=== PATIENT | female | born 1950 | race American Indian/Alaskan Native ===

== ENCOUNTER 2018-12-08 12:34 | Emergency (ER) | payer SELFPAY ==
[2018-12-08 12:45] VITALS: BP 148/82
--- NOTE | 2018-12-08 12:46 | Event Note ---
ED Screening Note Date of service: 12/08/18 Time: 12:43 ED Screening Note: 68 y o presents to ED cc tigling pain to her left hand and arm from something that bit her 2 days ago no visual f what bit her This initial assessment/diagnostic orders/clinical plan/treatment(s) is/are subject to change based on patients health status, clinical progression and re- assessment by fellow clinical providers in the ED. Further treatment and workup at subsequent clinical providers discretion. Patient/guardian urged not to elope from the ED as their condition may be serious if not clinically assessed and managed. Initial orders include:
== END 2018-12-08 17:50 | disposition left against medical advice (07) ==
LOC: ED 12:34
DX: L29.9 Pruritus, unspecified (principal); Z53.21 Procedure and treatment not carried out due to patient leaving prior to being seen by health care provider

== ENCOUNTER 2020-08-05 17:33 | Emergency (ER) | payer MEDICARE ==
[2020-08-05] MEDS ORDERED: SODIUM CHLORIDE 0.9% 1000 ML 1,000 ML IV ONE (19:45)
--- NOTE | 2020-08-05 20:37 | XRay Report ---
ACUTE ABDOMEN SERIES 3 VIEWS 1950 INDICATION: near syncope, constipation COMPARISON: None available. FINDINGS: Lung godinez appear clear. No pneumoperitoneum is seen. I do not see evidence of bowel obstr uction. Moderate stool in the rectum might indicate mild impaction. Calcifications of the pelvis prob ably are vascular though some are indeterminate. Signer Name: Tadeo Bradshaw MD Signed: 08/05/2020 8:33 PM Workstation Name: [id number]
[2020-08-05 20:46] LABS: Basophils # (Auto) 0.1 K/mm3 (0.0-0.1); Basophils % (Auto) 0.7 % (0.0-1.8); Eosinophils % (Auto) 0.4 % (0.0-4.3); Hematocrit 41.1 % (30.3-42.9); Hemoglobin 13.3 gm/dl (10.1-14.3); Lymphocytes # (Auto) 1.1 K/mm3 (1.2-5.4); Lymphocytes % (Auto) 14.9 % (13.4-35.0); Mean Corpuscular HGB Conc 32 % (30-34); Mean Corpuscular Volume 92 fl (79-97); Monocytes # (Auto) 0.2 K/mm3 (0.0-0.8); Monocytes % (Auto) 3.2 % (0.0-7.3); Platelet Count 211 K/mm3 (140-440); Red Blood Count 4.48 M/mm3 (3.65-5.03); Red Cell Distribution Width 14.8 % (13.2-15.2)
[2020-08-05 20:51] LABS: Bilirubin,Urine NEG (Negative); Blood,Urine NEG (Negative); Color,Urine Straw (Yellow); Mucus,Urine 1+ /HPF; Protein,Urine <15 mg/dL mg/dL (Negative); Urobilinogen,Urine < 2.0 mg/dL (<2.0)
[2020-08-05 20:59] LABS: Blood Urea Nitrogen 11 mg/dL (7-17); Calcium 9.3 mg/dL (8.4-10.2); Hemolysis Index 0
[2020-08-05 21:05] LABS: BUN/Creatinine Ratio 22
--- NOTE | 2020-08-05 21:35 | Emergency Department Report ---
ED Syncope HPI - General Chief Complaint: Dizziness Stated Complaint: NAUSEA/VOMITING Time Seen by Provider: 08/05/20 19:40 - History of Present Illness Initial Comments: Patient is a 70-year-old F [place] female with past medical history of hypertension who states she had a near syncopal episode today. States she has been has some abdominal discomfort and cramps secondary to constipation. Patient not had a bowel movement in over a week. She states after taking her medications of which 2 were new which were Crestor and Protonix she states she had some fullness in the abdomen and felt very hot. She denies chest pain sh ortness of breath fevers chills nausea vomiting. Patient is after receiving some IV fluids from apprentice plant attendant states she is feeling better. Paramedics arrived they stated that she was alert and oriented but looked very sleepy with possible pinpoint pupils. She was given Narcan. Patient has no history of narcotic use to our knowledge. - Related Data Allergies/Adverse Reactions: Allergies No Known Allergies Allergy (Unverified 12/08/18 12:39) Home Medications: Ambulatory Orders Nitrofurantoin Phelps/M-Cryst [Macrobid CAP] 100 mg PO Q12HR #10 capsule 01/02/19 Docusate Sodium [Colace] 100 mg PO BID #30 capsule 08/05/20 ED Review of Systems ROS: Stated complaint: NAUSEA/VOMITING Other details as noted in HPI Comment: All other systems reviewed and negative ED Past Medical Hx - Past Medical History Hx Hypertension: Yes Hx Arthritis: Yes Hx Psychiatric Treatment: Yes (ANXIETY,DEPRESSION) Additional medical history: ELEVATED CHOLESTEROL, - Social History Smoking Status: Current Every Day Smoker Substance Use Type: Marijuana - Medications Home Medications: Home Medications Medication Instructions Recorded Confirmed Last Taken Type Nitrofurantoin Phelps/M-Cryst 100 mg PO Q12HR #10 capsule 01/02/19 Unknown Rx [Macrobid CAP] Docusate Sodium [Colace] 100 mg PO BID #30 capsule 08/05/20 Unknown Rx ED Physical Exam - General Limitations: No Limitations General appearance: alert, in no apparent distress - Head Head exam: Present: atraumatic, normocephalic - Eye Eye exam: Present: normal appearance - ENT ENT exam: Present: mucous membranes moist - Neck Neck exam: Present: normal inspection - Respiratory Respiratory exam: Present: normal lung sounds bilaterally. Absent: respiratory distress, wheezes, rales, rhonchi - Cardiovascular Cardiovascular Exam: Present: regular rate, normal rhythm, normal heart sounds. Absent: systolic murmur, diastolic murmur, rubs, gallop - GI/Abdominal GI/Abdominal exam: Present: soft, normal bowel sounds. Absent: distended, tenderness, guarding, rebound - Extremities Exam Extremities exam: Present: normal inspection - Back Exam Back exam: Present: normal inspection - Neurological Exam Neurological exam: Present: alert, oriented X3 - Psychiatric Psychiatric exam: Present: normal affect, normal mood - Skin Skin exam: Present: warm, dry, intact, normal color. Absent: rash ED Course Vital Signs 08/05/20 19:05 Temperature 96.1 F L Pulse Rate 58 L Respiratory 18 Rate Blood Pressure 141/90 O2 Sat by Pulse 97 Oximetry ED Medical Decision Making - Lab Data Result diagrams: 08/05/20 20:20 08/05/20 20:20 Lab Results 08/05/20 08/05/20 08/05/20 Range/Units 20:02 20:20 20:20 WBC 7.2 (4.5-11.0) K/mm3 RBC 4.48 (3.65-5.03) M/mm3 Hgb 13.3 (10.1-14.3) gm/dl Hct 41.1 (30.3-42.9) % MCV 92 (79-97) fl MCH 30 (28-32) pg MCHC 32 (30-34) % RDW 14.8 (13.2-15.2) % Plt Count 211 (140-440) K/mm3 Lymph % (Auto) 14.9 (13.4-35.0) % Phelps % (Auto) 3.2 (0.0-7.3) % Eos % (Auto) 0.4 (0.0-4.3) % Baso % (Auto) 0.7 (0.0-1.8) % Lymph # (Auto) 1.1 L (1.2-5.4) K/mm3 Phelps # (Auto) 0.2 (0.0-0.8) K/mm3 Eos # (Auto) 0.0 (0.0-0.4) K/mm3 Baso # (Auto) 0.1 (0.0-0.1) K/mm3 Seg Neutrophils % 80.8 H (40.0-70.0) % Seg Neutrophils # 5.8 (1.8-7.7) K/mm3 Sodium 144 (137-145) mmol/L Potassium 3.3 L (3.6-5.0) mmol/L Chloride 104.9 (98-107) mmol/L Carbon Dioxide 28 (22-30) mmol/L Anion Gap 14 mmol/L BUN 11 (7-17) mg/dL Creatinine 0.5 L (0.6-1.2) mg/dL Estimated GFR > 60 ml/min BUN/Creatinine Ratio 22 % Glucose 98 (65-100) mg/dL Calcium 9.3 (8.4-10.2) mg/dL Urine Color Straw (Yellow) Urine Turbidity Clear (Clear) Urine pH 7.0 (5.0-7.0) Ur Specific [place] 1.012 (1.003-1.030) Urine Protein <15 mg/dl (Negative) mg/dL Urine Glucose (UA) Neg (Negative) mg/dL Urine Ketones Tr (Negative) mg/dL Urine Blood Neg (Negative) Urine Nitrite Neg (Negative) Urine Bilirubin Neg (Negative) Urine Urobilinogen < 2.0 (<2.0) mg/dL Ur Leukocyte Esterase Neg (Negative) Urine WBC (Auto) 1.0 (0.0-6.0) /HPF Urine RBC (Auto) 5.0 (0.0-6.0) /HPF U Epithel Cells (Auto) 5.0 (0-13.0) /HPF Urine Mucus 1+ /HPF - EKG Data -: EKG Interpreted by Ny EKG shows normal: sinus rhythm (rate 60), axis, intervals, QRS complexes, ST-T waves Rate: normal - EKG Data Interpretation: normal EKG - Radiology Data [facility] [address] [place] [address] XRay Report Signed Patient: KARIME BROWER MR#: [id number] : 1950 Acct:[id number] Age/Sex: 70 / F ADM Date: 08/05/20 Loc: ED Attending Dr: Ordering Physician: LENCHO KNOTT MD Date of Service: 08/05/20 Procedure(s): XR abd series w cxr 1V Accession Number(s): [id number] cc: LENCHO KNOTT MD Fluoro Time In Minutes: ACUTE ABDOMEN SERIES 3 VIEWS 1950 INDICATION: near syncope, constipation COMPARISON: None available. FINDINGS: Lung godinez appear clear. No pneumoperitoneum is seen. I do not see evidence of bowel obstruction. Moderate stool in the rectum might indicate mild impaction. Calcifications of the pelvis probably are vascular though some are indeterminate. Signer Name: Tadeo Bradshaw MD Signed: 08/05/2020 8:33 PM Workstation Name: [id number] Transcribed By: Dictated By: Tadeo Bradshaw MD Electronically Authenticated By: Tadeo Bradshaw MD Signed Date/Time: 08/05/202032 - Medical Decision Making Paramedics on their arrival before patient was able to be put in the bed stated that the patient was bradycardic down into the 40s. Patient was a symptomatic. States she is feeling much improved. Prior monitor the patient has been approximately 64 heart rate the entire time she has been here. Patient is on atenolol and I would expect a lower heart rate at her baseline. Regarding the patient's possible near syncopal episode patient appears well currently. Laboratory studies unremarkable. She received some fluids and states she is feels much better. Believe the patient stable for discharge. Patient does show evidence of some constipation will be started on Colace. Critical care attestation.: If time is entered above; I have spent that time in minutes in the direct care of this critically ill patient, excluding procedure time. ED Disposition Clinical Impression: Syncope, near, Constipation Disposition: DC-01 TO HOME OR SELFCARE Is pt being admited?: No Does the pt Need Aspirin: No Condition: Stable Instructions: Constipation, Adult, Near-Syncope, [id number] Prescriptions: Docusate Sodium [Colace] 100 mg PO BID #30 capsule Referrals: PRIMARY CARE, [Primary Care Provider] - 3-5 Days Time of Disposition: 21:37
[2020-08-05] MEDS ORDERED: KETOROLAC 30 MG/1 ML INJ IV ONE (21:58)
[2020-08-05] MEDS ORDERED: ONDANSETRON 4 MG/2 ML INJ IV ONE (21:58)
[2020-08-06 00:13] VITALS: BP 158/97
== END 2020-08-05 21:50 | disposition home or self-care (01) ==
LOC: ED 17:33
DX: R55 Syncope and collapse (principal); K59.00 Constipation, unspecified; I10 Essential (primary) hypertension; M19.91 Primary osteoarthritis, unspecified site; F41.9 Anxiety disorder, unspecified; F32.9 Major depressive disorder, single episode, unspecified; F17.200 Nicotine dependence, unspecified, uncomplicated; F12.10 Cannabis abuse, uncomplicated; Z79.899 Other long term (current) drug therapy
CPT/HCPCS: 36415; 74022; 80048; 81001; 85025; 96361; 96374; 96375; 99284; J1885; J2405; J7030

== ENCOUNTER 2021-04-30 11:36 | Emergency (ER) | payer MEDICARE ==
[2021-04-30 12:17] VITALS: BP 165/96
--- NOTE | 2021-04-30 12:49 | Emergency Department Report ---
ED Back Pain/Injury HPI - General Chief Complaint: Back Pain/Injury Stated Complaint: BACK/NECK PAIN Time Seen by Provider: 04/30/21 12:28 Source: patient Limitations: No Limitations - History of Present Illness Initial Comments: Chief complaint: "My neck and back is killing me." HPI: This is a 70-year-old female with history of Anxiety, depression, hyperlipidemia, diabetes, hypertension who presents with neck and back pain for several weeks. She has had arthritis in her back and neck for 10+ years. She is waiting for referral to pain physician by primary care doctor. She has used Tylenol at home without relief. She has lower neck pain and lower back pain. Pain is worse with cold weather. She denies weakness in the extremities. No bowel or bladder incontinence. In the past she has taken Vicodin and Tylenol 3. MD Complaint: back pain -: Gradual, year(s) (10 years) Similar Symptoms Previously: Yes Severity: severe Severity scale (0 -10): 10 Quality: dull, aching Consistency: constant Improves With: none Worsens With: none Context: other (History of arthritis) Associated Symptoms: denies other symptoms - Related Data Previous Rx's Medication Instructions Recorded Last Taken Type Nitrofurantoin Luce/M-Cryst 100 mg PO Q12HR #10 capsule 01/02/19 Unknown Rx [Macrobid CAP] Docusate Sodium [Colace] 100 mg PO BID #30 capsule 08/05/20 Unknown Rx HYDROcodone/APAP 5-325 [[place] 1 each PO Q6HR PRN #15 tablet 04/30/21 Unknown Rx 5/325] Allergies Allergy/AdvReac Type Severity Reaction Status Date / Time No Known Allergies Allergy Verified 04/30/21 12:17 ED Review of Systems ROS: Stated complaint: BACK/NECK PAIN Other details as noted in HPI Comment: All other systems reviewed and negative Constitutional: denies: chills, fever, malaise Respiratory: denies: cough, shortness of breath Cardiovascular: denies: chest pain Gastrointestinal: denies: abdominal pain, nausea, vomiting Musculoskeletal: back pain ED Past Medical Hx - Past Medical History Previous Medical History?: Yes Hx Hypertension: Yes Hx Arthritis: Yes Hx Psychiatric Treatment: Yes (ANXIETY,DEPRESSION) Additional medical history: ELEVATED CHOLESTEROL, - Surgical History Past Surgical History?: No - Social History Smoking Status: Current Every Day Smoker Substance Use Type: Marijuana - Medications Home Medications: Home Medications Medication Instructions Recorded Confirmed Last Taken Type Nitrofurantoin Luce/M-Cryst 100 mg PO Q12HR #10 capsule 01/02/19 Unknown Rx [Macrobid CAP] Docusate Sodium [Colace] 100 mg PO BID #30 capsule 08/05/20 Unknown Rx HYDROcodone/APAP 5-325 [[place] 1 each PO Q6HR PRN #15 tablet 04/30/21 Unknown Rx 5/325] ED Physical Exam - General Limitations: No Limitations ED Course Vital Signs 04/30/21 12:15 Temperature 98.9 F Pulse Rate 81 Respiratory 18 Rate Blood Pressure 165/96 [Left] O2 Sat by Pulse 100 Oximetry ED Medical Decision Making - Medical Decision Making Cervical and lumbar degenerative disc disease: No red flags such as fever trauma neurological deficits. Patient appears well. Sitting in chair with legs crossed. Prescribed 15 tablets of [place]. Referred to forestry extension specialist. Critical care attestation.: If time is entered above; I have spent that time in minutes in the direct care of this critically ill patient, excluding procedure time. ED Disposition Clinical Impression: Degenerative disc disease, cervical, Lumbar degenerative disc disease Disposition: HOME / SELF CARE / HOMELESS Is pt being admited?: No Does the pt Need Aspirin: No Condition: Stable Instructions: Acute Back Pain, Adult, Cervical Radiculopathy, [id number] Prescriptions: HYDROcodone/APAP 5-325 [[place] 5/325] 1 each PO Q6HR PRN #15 tablet PRN Reason: Pain Referrals: KAYLA CARR II, MD [Staff Physician] - 3-5 Days
== END 2021-04-30 13:35 | disposition home or self-care (01) ==
LOC: ED 11:36
DX: M51.36 Other intervertebral disc degeneration, lumbar region (principal); M50.30 Other cervical disc degeneration, unspecified cervical region; I10 Essential (primary) hypertension; M19.90 Unspecified osteoarthritis, unspecified site; F41.8 Other specified anxiety disorders; F17.200 Nicotine dependence, unspecified, uncomplicated; Z79.899 Other long term (current) drug therapy
CPT/HCPCS: 99282